=== PATIENT | female | born 1975 | race Caucasian/White ===

== ENCOUNTER → 2018-06-13 | Outpatient (CLI) | payer OTHER ==
[~2018-06-13] MED LIST: COLACE 100 MG100 MG PO; FEOSOL325 M1 PO; IBUPROFEN 600600 M1 PO; IBUPROFEN 800800 M1 PO; IRON325 PO; NORCO 5-325 TA1 EACH PO; PRENATAL; PRENATAL PO
== END ==
LOC: RAD 10:41
DX: Z12.31 Encounter for screening mammogram for malignant neoplasm of breast (principal)

== ENCOUNTER → 2019-08-01 | Outpatient (CLI) | payer OTHER | LOC: BC 11:35 | PROVIDERS: ATTEND Obstetrics & Gynecology | DX: Z12.31 Encounter for screening mammogram for malignant neoplasm of breast (principal) ==